=== PATIENT | female | born 1930 | race Caucasian/White ===

== ENCOUNTER 2018-03-16 09:06 | Inpatient (IN) | payer MEDICARE, BC | END 2018-03-21 16:30 | LOC: PAS IN 09:06 → ORTHO 4S 15:30 | PROC: 0SRB0J9 Replacement of Left Hip Joint with Synthetic Substitute, Cemented, Open Approach (ICD-10-PCS; principal; 2018-03-16 10:39) | DX: M16.12 Unilateral primary osteoarthritis, left hip (principal); I10 Essential (primary) hypertension ==

== ENCOUNTER 2018-03-31 09:18 | Day surgery (SDC) | payer MEDICARE, BC ==
[~2018-03-31] VITALS: Ht 160 cm; Wt 59.8 kg
[2018-03-31] VITALS (9 sets, daily range): BP systolic 112–158; BP diastolic 44–68
[~2018-03-31 09:18] MED LIST: LISI10TA4 PO; SYN0.088T PO
[2018-03-31] MEDS ORDERED: diphenhydrAMINE 50 mg/ml inj IV ONE (09:50)
[2018-03-31] MEDS ORDERED: acetaminophen 325mg tablet PO ONE (09:50)
[2018-03-31] MEDS ORDERED: diphenhydrAMINE 25mg capsule PO ONE (09:50)
--- NOTE | 2018-03-31 10:05 | NUR ---
PT STATES HAS HISTORY OF CONSTIPATION Addendum: 03/31/18 at 1649 by Niki Ross RN Amended: Links added.
--- NOTE | 2018-03-31 10:05 | NUR ---
PT STATES HAS BEEN HAVING BLACK STOOLS, DIARRHEA, FOR ONE WEEK, EPIGASTRIC PAIN FOR ABOUT A MONTH, STATES STOOLS HAVE FUNNY ODOR. Addendum: 03/31/18 at 1649 by Niki Ross RN Amended: Links added.
[2018-03-31] MEDS ORDERED: IRON COMPLEX PO (15:32)
[2018-03-31] MEDS ORDERED: HYDR-4353 PO (15:33)
[2018-03-31] MEDS ORDERED: ENOX30SY10 IV (15:34)
[2018-03-31] MEDS ORDERED: ASPI81TA52 PO (15:35)
--- NOTE | 2018-03-31 16:05 | NUR ---
CALL TO DR MCRAE'S OFFICE, REPORTED CONCERNS OF BLACK STOOL, AND EPIGASTRIC PAIN AND LOW HGB WITH LOVENOX AND BABY ASPIRIN BEING GIVEN DAILY POST LOU. DR MCRAE STATES HE WILL ORDER COMPLETE GI WORKUP THROUGH [facility]. ALSO CALL MADE TO [facility] REPORT GIVEN TO JONATHAN BAKERSAMPLE TAILOR NURSE, REPORTED PT AND MY CONCERNS RE EPIGASTRIC PAIN AND BLACK STOOLS AND THAT I HAD REPORTED ASSESSMENT TO DR MCRAE, AND ALSO MY CONCERNS RE LOVENOX AND ASPIRIN. I INFORMED JONATHAN BAKER THAT DR MCRAE STATES HE WOULD ORDER A COMPLETE GI WORKUP THROUGH [facility]. Addendum: 03/31/18 at 1740 by Niki Ross RN Amended: Links added.
== END 2018-03-31 15:55 ==
LOC: SSTAY O 09:18
PROVIDERS: ATTEND Internal Medicine
DX: D64.9 Anemia, unspecified (principal)
CPT/HCPCS: 36415; 36430; 86885; 86900; 86901; 86920; J1200; P9016; Q0163

== ENCOUNTER 2019-10-11 07:41 | Day surgery (SDC) | payer MEDICARE, BC ==
[~2019-10-11] VITALS: Ht 160 cm; Wt 61.8 kg
[2019-10-11] VITALS (12 sets, daily range): BP systolic 129–185; BP diastolic 56–77
[~2019-10-11 07:41] MED LIST changes: +ASPI81TA52 PO; +ENOX30SY10 IV; +HYDR-4353 PO; +IRON COMPLEX PO
[2019-10-11] MEDS ORDERED: HAWTHORN (08:08)
[2019-10-11] MEDS ORDERED: CLOP75TA15 PO (08:08)
[2019-10-11] MEDS ORDERED: b12 (08:08)
[2019-10-11] MEDS ORDERED: NITR0.4T48 SL (08:08)
[2019-10-11] MEDS ORDERED: coq10 (08:08)
[2019-10-11] MEDS ORDERED: fish oil (08:08)
[2019-10-11] MEDS ORDERED: MULT-1085 PO (08:08)
[2019-10-11] MEDS ORDERED: normal saline 1,000 ML IV SCH (08:10)
[2019-10-11] MEDS ORDERED: diphenhydrAMINE 25mg capsule PO PRN (08:10)
[2019-10-11] MEDS ORDERED: midazolam 2 mg/2 ml injection ONE ×2 (08:33→09:50)
[2019-10-11] MEDS ORDERED: heparin 1,000unit/ml 10ml vial 10 ML ONE (08:34)
[2019-10-11] MEDS ORDERED: LIDOcaine 1% 30ml preserv. free vial ONE (08:34)
[2019-10-11] MEDS ORDERED: fentaNYL/PF 50MCG/1 ML 2ML syringe ONE (08:34)
[2019-10-11] MEDS ORDERED: iohexol 350MG/ML 100ml bottle IV ONE (08:36)
[2019-10-11 08:40] LABS: BASOPHILS % (AUTO) 0.8 % (0-1); EOSINOPHILS # (AUTO) 0.1 X10'3 (0-0.9); HEMATOCRIT 42.2 % (35.0-45.0); HEMOGLOBIN 14.1 g/dl (12.0-16.0); LYMPHOCYTES # (AUTO) 0.9 X10'3 (1.1-4.8); LYMPHOCYTES % (AUTO) 13.5 % (21-51); MEAN CORPUSCULAR HEMOGLOBIN 30.3 PG (27.0-31.0); MEAN CORPUSCULAR HGB CONC 33.4 g/dL (33.0-36.5); MEAN CORPUSCULAR VOLUME 90.9 FL (78-98); MONOCYTES # (AUTO) 0.6 X10'3 (0-0.9); NEUTROPHILS # (AUTO) 4.7 X10'3 (1.8-7.7); NEUTROPHILS % (AUTO) 74.7 % (42-75); PLATELET COUNT 247 X10'3 (140-440); RED BLOOD COUNT 4.64 X10'6 (4.20-5.60); RED CELL DISTRIBUTION WIDTH 14.4 % (11.5-14.5); WHITE BLOOD COUNT 6.3 X10'3 (4.5-11.0)
[2019-10-11 08:51] LABS: ALBUMIN 3.9 G/DL (3.4-5.0); ANION GAP 11 (8-16); BLOOD UREA NITROGEN 17 MG/DL (7-18); BUN/CREATININE RATIO 24.3 (6.6-38.0); CALCIUM 9.1 MG/DL (8.5-10.1); CHLORIDE 105 MMOL/L (99-107); GLUCOSE 112 MG/DL (70-104); MAGNESIUM 2.5 MG/DL (1.5-2.4); POTASSIUM 3.8 MMOL/L (3.5-5.1); SODIUM 141 MMOL/L (135-145); TOTAL CARBON DIOXIDE 25.4 MMOL/L (24-32); eGFR 79 ML/MIN
[2019-10-11] MEDS ORDERED: iohexol 350 MG/ML 50ML vial IV ONE (09:55)
[2019-10-11] MEDS ORDERED: ondansetron/PF 4mg/2ml inj IV PRN (10:45)
[2019-10-11] MEDS ORDERED: proCHLORperazine 10 MG/2 ml inj IV PRN (10:45)
== END 2019-10-11 14:00 | disposition home or self-care (01) ==
LOC: SSTAY O 07:41
PROVIDERS: ATTEND Internal Medicine Cardiovascular Disease
DX: R07.89 Other chest pain (principal); I25.10 Atherosclerotic heart disease of native coronary artery without angina pectoris; I10 Essential (primary) hypertension; E78.5 Hyperlipidemia, unspecified; Z98.890 Other specified postprocedural states; Z79.899 Other long term (current) drug therapy
CPT/HCPCS: 36415; 80048; 83735; 85025; 85610; 93005; 93458; 99152; 99153; C1760; C1769; C1894; J1644; J2001; J2250; J3010; J7030; Q0163; Q9967; A4620; A6258